=== PATIENT | male | born 1980 | race Caucasian/White ===

== ENCOUNTER 2017-08-14 11:28 | Emergency (ER) | payer OTHER ==
[~2017-08-14] VITALS: Ht 175.3 cm; Wt 115.7 kg
[2017-08-14] MEDS ORDERED: PAXIL10 MG PO (11:41)
[2017-08-14] MEDS ORDERED: PROTONIX 20 MG20 MG PO (11:41)
[2017-08-14] MEDS ORDERED: PRINIVIL20 MG PO (11:41)
[2017-08-14 11:52] LABS: ABSOLUTE BASOPHILS 0.1 thou/uL (0.0-0.2); ABSOLUTE EOSINOPHILS 0.1 thou/uL (0.0-0.7); ABSOLUTE LYMPHOCYTES 1.8 thou/uL (0.8-5.3); ABSOLUTE MONOCYTES 0.7 thou/uL (0.0-1.2); ABSOLUTE NEUTROPHILS 5.3 thou/uL (1.6-8.1); BASOPHILS 0.8 %; EOSINOPHILS 1.6 %; HEMATOCRIT 48.9 % (42.0-52.0); HEMOGLOBIN 17.2 gm/dL (14.0-18.0); MCHC 35.1 g/dL (28.0-37.0); MCV 88.2 fL (80.0-100.0); MONOCYTES 8.3 %; MPV 9.8 fl. (7.2-11.1); NUCLEATED RBCS 0 /100WBC; PLATELET COUNT* 219 thou/uL (150-400); POLYS 66.3 %; RBC 5.55 mil/uL (4.50-6.00); RDW-CV 13.4 % (10.5-14.5)
[2017-08-14 12:07] LABS: APTT 29.7 Seconds (25.0-31.3)
[2017-08-14 13:18] LABS: ALBUMIN 3.8 g/dL (3.4-5.0); ALKALINE PHOSPHATASE 54 U/L (46-116); ANION GAP 7 mmol/L (7-16); BUN 13 mg/dL (7-18); CALCIUM 8.8 mg/dL (8.5-10.1); CHLORIDE 104 mmol/L (98-107); CO2 28 mmol/L (21-32); CREATININE 1.3 mg/dL (0.6-1.3); GLUCOSE 98 mg/dL (70-99); LIPASE 77 U/L (73-393); NT-PRO BRAIN NAT PEPTIDE 140 pg/mL (<300); SGOT 16 U/L (15-37); SGPT 26 U/L (30-65); SODIUM 139 mmol/L (136-145); TOTAL BILIRUBIN 0.4 mg/dL (<0.1-1.0); TOTAL PROTEIN 6.9 g/dL (6.4-8.2); TROPONIN-I LEVEL <0.06 ng/mL (<0.06)
[2017-08-14] MEDS ORDERED: ZESTORETIC 20-1 EACH PO (13:18)
[2017-08-14 13:36] VITALS: BP 178/118
--- NOTE | 2017-08-15 09:12 | EKG ---
[place] [address] ELECTROCARDIOGRAM REPORT Name: FRANCHESCA HEDRICK [facility] [id number] Admission: 08/14/17 Attend Phys: Discharge: 08/14/17 Date of : 76 Report #: [id number] THIS REPORT FOR: //name// [facility] ED Test Date: 2017-08-14 Test Time: 11:35:14 Pat Name: FRANCHESCA HEDRICK Department: Room: Gender: M [employer] Channel Opener: Clarissa GOTTLIEB : 1980 Requested By: Dejon Hearn Order Number: [id number] MD: Rusty Allen Measurements Intervals [place] Rate: 96 P: 22 TN: 158 QRS: -44 QRSD: 94 T: 17 QT: 363 QTc: 459 Interpretive Statements Sinus rhythm Left axis deviation No previous ECG available for comparison Electronically Signed On 08-15-2017 9:12:28 CDT by Rusty Allen [email or web address] <ELECTRONICALLY SIGNED> By: Rusty Allen MD, [facility] 08/15/17 0912 1135 [id number] Rusty Allen MD, FACC /EPI
== END 2017-08-14 13:36 | disposition home or self-care (01) ==
LOC: M.ERS 11:28
PROVIDERS: Family Medicine
DX: I10 Essential (primary) hypertension (principal); F41.9 Anxiety disorder, unspecified; F17.210 Nicotine dependence, cigarettes, uncomplicated; Z88.0 Allergy status to penicillin